=== PATIENT | female | born 1950 | race Caucasian/White ===

== ENCOUNTER → 2021-02-01 10:07 | Outpatient (CLI) | payer MEDICARE, SELFPAY | PROVIDERS: PCP Student in an Organized Health Care Education/Training Program; Visit Provider Specialist | DX: N39.0 Urinary tract infection, site not specified (principal); N39.46 Mixed incontinence; N81.10 Cystocele, unspecified; N81.6 Rectocele; N95.2 Postmenopausal atrophic vaginitis | CPT/HCPCS: 81002; 87086; 99214 ==

== ENCOUNTER → 2025-10-22 12:07 | Outpatient (CLI) | payer OTHER, SELFPAY ==
--- NOTE | 2025-10-22 12:10 | DI.NM.S_ITS ---
PROCEDURE: NM CHERIE PERF SPECT R&S PHARM Rest and pharmacological stress myocardial perfusion SPECT with gated imaging and ejection fraction RADIOPHARMACEUTICAL: 25.3 mCi Tc-99m tetrafosmin IV at rest and 25.0 mCi Tc-99m tetrafosmin IV at peak effect of pharmacological stress. Dbr-siv-onzkdqrk was performed. INDICATIONS: Dyspnea on exertion TECHNIQUE: Radiopharmaceutical was injected at peak stress test, and also at rest. SPECT images were obtained. SPECT myocardial perfusion images were displayed in short axis, horizontal long axis, and vertical long axis views. Gated images were reviewed using [employer] software. COMPARISON: None. CARDIAC STRESS: A pharmacologic stress test was performed under the supervision of an attending staff, using an infusion of regadenoson 0.4 mg IV. Hemodynamic data: There is normal blood pressure and heart rate response to pharmacologic stress. Symptoms: The patient denied anginal chest pain. EKG: No diagnostic changes of ischemia; no ectopy. FINDINGS: Raw data: There is good myocardial uptake of radiotracer. No significant motion artifacts. Nuss-ly-zdkbe ratio is 0.59 (normal is less than 0.38 for tetrafosmin tracer). Left ventricle function: Gated images demonstrate normal left ventricular wall thickening. No segmental wall motion abnormalities. No transient ischemic dilation; TID is 0.95 (normal less than 1.3). Left ventricle resting end diastolic volume is 110 mL. Left ventricle stress ejection fraction is >75%; normal range is above 45%. Myocardial perfusion: There is a small sized, mild intensity partially reversible distal lateral wall defect. IMPRESSION: Abnormal study. There is evidence of a partially reversible distal lateral wall defect which may be consistent with prior infarct and associated harvey-infarct ischemia. Normal LV size with hyperdynamic function. An attempt was made to reach to the ordering provider's office. An answering service was reached however no on-call provider was available to give specific test results to. I did leave a message that this patient had an abnormal stress test. Dictated by: Tamiko Lee D.O. on 11/02/2025 at 17:05 Approved by: Tamiko Lee D.O. on 11/02/2025 at 17:11
== END ==
LOC: NUCM 12:09
PROVIDERS: PCP Student in an Organized Health Care Education/Training Program; Referring Provider Student in an Organized Health Care Education/Training Program; Visit Provider Student in an Organized Health Care Education/Training Program
DX: R94.39 Abnormal result of other cardiovascular function study (principal); R06.09 Other forms of dyspnea; R07.89 Other chest pain
CPT/HCPCS: 78452; 93017; A9502; J2785